=== PATIENT | female | born 1995 | race Caucasian/White ===

== ENCOUNTER → 2017-04-10 | Outpatient (CLI) | payer MEDICAID ==
[~2017-04-10] MED LIST: Z.0.NO CURRENT MEDS
== END ==
LOC: HPND 09:25
PROVIDERS: ATTEND Obstetrics & Gynecology
DX: O35.8XX0 Maternal care for other (suspected) fetal abnormality and damage, not applicable or unspecified (principal); O34.219 Maternal care for unspecified type scar from previous cesarean delivery
CPT/HCPCS: 76811

== ENCOUNTER → 2017-05-15 | Outpatient (CLI) | payer MEDICAID | LOC: HPND 08:02 | PROVIDERS: ATTEND Obstetrics & Gynecology | DX: O34.212 Maternal care for vertical scar from previous cesarean delivery (principal); O35.8XX0 Maternal care for other (suspected) fetal abnormality and damage, not applicable or unspecified; Z36 Encounter for antenatal screening of mother; Z3A.00 Weeks of gestation of pregnancy not specified | CPT/HCPCS: 76816 ==

== ENCOUNTER → 2017-06-29 | Outpatient (CLI) | payer MEDICAID | LOC: HPND 12:54 | PROVIDERS: ATTEND Obstetrics & Gynecology | DX: O36.80X0 Pregnancy with inconclusive fetal viability, not applicable or unspecified (principal); V43.92XA Unspecified car occupant injured in collision with other type car in traffic accident, initial encounter | CPT/HCPCS: 76816 ==

== ENCOUNTER → 2017-08-04 | Outpatient (CLI) | payer MEDICAID | LOC: HPND 08:15 | PROVIDERS: ATTEND Obstetrics & Gynecology | DX: O26.843 Uterine size-date discrepancy, third trimester (principal); O34.211 Maternal care for low transverse scar from previous cesarean delivery | CPT/HCPCS: 76816 ==